=== PATIENT | male | born 1955 | race Caucasian/White ===

== ENCOUNTER 2024-04-02 13:59 | Inpatient (IN) ==
[2024-04-03] MEDS: ASPIRIN 81 MG CHEWTAB PO SCH (03:46)
[2024-04-03] MEDS: COLACE CAP 100 MG PO SCH (03:59)
[2024-04-03] MEDS: CYMBALTA PO SCH (03:59)
[2024-04-03] MEDS: MILK OF MAGNESIA PO SCH (04:00)
[2024-04-03] MEDS: NORVASC TAB 10 MG PO SCH (04:00)
[2024-04-03] MEDS: LIPITOR TAB 40 MG PO SCH (04:00)
[2024-04-03] MEDS: GLUCOPHAGE PO SCH (04:00)
[2024-04-03] MEDS: PROTONIX TAB 40 MG PO SCH (04:01)
[2024-04-03] MEDS: ZESTRIL TAB 40 MG PO SCH (04:01)
[2024-04-03] MEDS: ZYLOPRIM PO SCH (04:01)
[2024-04-03] MEDS: MIACALCIN NASAL SPRAY NAS SCH (08:22)
[2024-04-03] MEDS: LOVENOX INJ 40 MG SYR SC SCH (10:11)
--- NOTE | 2024-04-03 14:42 | RAD ---
EXAM:CHEST, 1 VIEWHISTORY:CHF;COMPARISON:No relevant prior studies were available for comparison at the time of interpretation.TECHNIQUE:CHEST, 1 VIEWFINDINGS:Chest:Lines and tubes: NoneMediastinum: Cardiac and mediastinal shadow is within normal limits for size and contour.Pulmonary vessels: No pulmonary vascular congestion.Lung stack: No suspicious airspace opacity.Pleura: No effusion. No pneumothorax.Bones and soft tissues: No acute osseous or soft tissue abnormality.IMPRESSION:1. No acute cardiopulmonary abnormalityTHIS IS AN ELECTRONICALLY VERIFIED FINAL REPORT04/03/2024 2:29 PM - Electronically signed by Leander Winters MD
--- NOTE | 2024-04-03 15:47 | PT/OTEVAL ---
PT/OT OBJECTIVES - HISTORY Prescription: OT Consult Diagnosis: Left hip fracture Precautions: WBAT, Posterior hip precautions PMH: HTN, DM Prior Level of Function: Independent Other: Per pt report, was present this date, pt lives with his and son in a 1 story home and 3 steps to enter. No HRs in back, and Both HRs (cant touch B at same time) in front. Pt is (I) with ADLs and IADLs. History of Present Illness: Pt is a 68 year old female who came to [facility] swingbed program due to a recent fall resulting in a L hip subcaptial femeoral neck fx, L closed fx phalanx 4th digit. Pt had a L cemented bipolar hemiarthroplasty. - COGNITION Mental Status: Alert, Oriented, Name, Date, Place, Purpose Communication Status: Verbal Ability to Follow Directions: 3 Step Affect: Calm - PAIN Left Hip Pain Scale: Moderate Comments: 07/12 Left Knee Pain Scale: Moderate Comments: 06/12 - BED MOBILITY Rolling: Minimal Scooting: Minimal - TRANSFERS Supine to Sit: Minimal Sit to Stand: Minimal Sit or Stand Pivot: Minimal Toileting: Minimal Safety (requires cues for:): Hip Precautions - ADL'S Feeding: Supervision Grooming: Supervision Upper Body ADL: Supervision Lower Body ADL: Maximum Toileting: Minimum Bathing: Moderate Hygeine: Supervision - BALANCE Dynamic Sitting: Good Standing: Fair Balance Comment: F with UE support Static Sitting: Good Standing: Fair - HAND DOMINANCE Extremity Function: Hand Dominance: Right - ROM Bilateral UE ROM: WFL - STRENGTH Bilateral UE Strength Number: 3 Other comment: 3+/5 - GAIT Pt. ambulates how many feet?: 100 Amount of assistance required: Minimal Amount of Assistance Required: Minimal Type of Assistive Device: Rolling Walker - TREATMENT Date: 04/03/24 Time: 09:00 Treatment Type: Evaluation Treatment Provided: Therapeutic Activities, Other - TOTAL TREATMENT TIME Total Time: 90 - POST ASSESSMENT Post Assessment Comment: Pt was seen for skilled OT to assess CLOF. Pt was able to provide PLOF and hx. Pt was agreeable to participate with skilled OT this date. Pt supine to sit with min A. Pt was able to state 3/3 hip precautions this date. Pt functionally AMB with RW and min A for balance. Pt toileted with min A. Pt requires max A for LB dressing at this time, she will need AE for safety with LB ADLs. Pt functionally AMB ~ 100 feet with RW and min A with frequent RBs for fatigue/discomfort. Pt agreeable to sit up in recliner. All needs met and call light within reach. Pt demonstrate deficits with ADLs and ADL functional mobilit y. Pt would benefit from skilled OT services to address ADL deficits to facilitate highest level of ADL function needed for safe d/c planning. - EXIT DISPOSITION Exit Position: CHAIR Call light in reach: Yes PT/OT ASSESSMENT - OT Problem List: Decreased Mobility ADL's, Decreased Safety Aware, Decreased Dressing, Decreased Bathing, Decreased Grooming, Decreased UE Strength - OT GOALS Staff Nurse [employer] Team Goals Days: 20 Mobility for ADL's: Pt to functionally transfer with mod (I). Safety Awareness: Pt to improve safety awareness to G Dressing: Pt to improve overall dressing to mod (I) Bathing: Pt to improve overall bathing to mod (I) Grooming: Pt to improve grooming to (I) Upper Ext. Strength/Use: Pt to improve MMT in BUE by 2 grades Other: Pt to improve FAT to G Short Term Goals Days: 10 Mobility for ADL's: Pt to functionally transfer with set up A and LRAD. Safety Awareness: Pt to improve safety awareness to F+ Dressing: Pt to improve overall dressing to set up A with AE Bathing: Pt to improve overall bathing to set up A with AE Upper Ext. Strength/Use: Pt to improve MMT in BUE by 1 grades Other: Pt to improve FAT to F+ - PATIENT GOALS Patient/Family Goals: "I want to go home" Goals Discussed with Patient/Family: Yes Rehabilitation Potential: Goo dto meet stated goals. Justification for Potential: To facilitate highest level of ADL function needed for safe d/c planning. Weakness and Barriers: Pain - FREQUENCY AND DURATION OT: 5x a week x 20 days Expected Continuation of Care at Discharge: Home, Outpatient Therapy
--- NOTE | 2024-04-03 17:02 | PT/OTEVAL ---
PT/OT OBJECTIVES - HISTORY Prescription: PT Consult Diagnosis: L THR s/p Fall; L 4th Phalanx Fracture Precautions: WBAT LLE, Posterior Total Hip Precautions, Fall Risk PMH: HTN, DM, Orthopedic Surgery (Ankle and Wrist), Kidney Stone Sx Prior Level of Function: Independent Other: Per patient report- she resides with her and son in a single story home with 3 steps to enter at all entrances. Front has BHRs but cannot reach both at the same time. PLOF: Independent within home and community without a device. No DME. Reports that she could drive if needed but does the majority of the driving. History of Present Illness: Mrs. Dunham is a 68 year old female who had a fall on 03/28/2024 resulting in L subcapital fracture for which she underwent a L bipolar cemented YAQUELIN (posterior approach) on 03/29/2024. Pt also sustained a L 4th phalanx fracture. Post op it was deemed that patient would benefit from swing bed rehab program and was transferred to [facility] on the evening of 04/02/2024. - COGNITION Mental Status: Alert, Oriented, Name, Date, Place, Purpose Communication Status: Verbal Ability to Follow Directions: 3 Step Memory Loss: None Affect: Calm - PAIN Left Hip Pain Scale: Moderate Comments: 07/12 Left Knee Pain Scale: Moderate Comments: 06/12 - BED MOBILITY Rolling: Minimal Rolling Comment: Cues to maintain posterior hip precautions - TRANSFERS Supine to Sit: Minimal Sit to Stand: Minimal Sit or Stand Pivot: Minimal Safety (requires cues for:): Weight Bearing Precaution, Hip Precautions - BALANCE Dynamic Sitting: Good Standing: Fair Balance Comment: Fair- Static Sitting: Good Standing: Fair - HAND DOMINANCE Extremity Function: Hand Dominance: Left - ROM Right LE ROM: WFL Left LE ROM: WFL Muscle Tone: WFL Comment: WFL to maintain L posterior hip precautions - STRENGTH Bilateral UE Strength Number: 3 Other comment: 3+/5 Right LE Strength Number: 4 Left Hip Strength Number: 3 Left Knee Strength Number: 3 Left Ankle Strength Number: 4 - GAIT Pt. ambulates how many feet?: 100 Amount of Assistance Required: Minimal Type of Assistive Device: Rolling Walker Comments: L knee immobilizer donned, decreased step length & decreased foot clearance - TREATMENT Date: 04/03/24 Time: 07:00 Treatment Type: Evaluation Treatment Provided: Gait, Therapeutic Activities - TOTAL TREATMENT TIME Total Time: 90 - POST ASSESSMENT Post Assessment Comment: Pt presents to facility s/p fall resulting in L subcapital fracture requiring posterior hip replacement surgery. Pt able to provide history and PLOF information and recall 3/3 posterior hip precautions. Pt required min assist for bed mobility tasks with cues for maintaining precautions and using pillow between knees if needed. Pt min assist for functional transfers from EOB, commode and recliner chair and cues for hand placement. Places LLE out in front of her to maintain precautions but also because knee immobilizer donned. Pt ambulated with FWW and min assist- cues for foot placement and sequencing with AD. Pt able to ambulate for 100ft before requiring therapeutic rest break. Performed 4 bouts total. Pt with excellent motivation for participation and would benefit from continued participation in PT services to address deficits and facilitate highest level of function and safe discharge planning. - EXIT DISPOSITION Exit Position: CHAIR Call light in reach: Yes PT/OT ASSESSMENT - PT Problem List: Decreased Bed Mobility, Decreased Transfers, Decreased Gait, Decreased Balance, Decreased LE Strength, Other Other, Comment: Manual Therapy, E-Stim as needed - PT GOALS Short Term Goals Days: 10 Mobility: Pt will perform bed mobility tasks with mod I Transfers: Pt will perform functional transfers with mod I Gait: Pt will ambulate 200ft with FWW and SBA Balance: Pt will increase static standing balance to good ROM/Strength: Pt will increase RLE strength to 5/5 Marketing Sales Representative Goals Days: 20 Gait: Pt will ambulate 400ft with LRAD and mod I Balance: Pt will increase dynamic standing balance to good ROM/Strength: Pt will increase LLE strength to 5/5 Others: Pt will ascend/descend 3 stairs with HR and mod I - OT GOALS Marketing Sales Representative Goals Days: 20 Mobility for ADL's: Pt to functionally transfer with mod (I). Safety Awareness: Pt to improve safety awareness to G Dressing: Pt to improve overall dressing to mod (I) Bathing: Pt to improve overall bathing to mod (I) Grooming: Pt to improve grooming to (I) Upper Ext. Strength/Use: Pt to improve MMT in BUE by 2 grades Other: Pt to improve FAT to G Short Term Goals Days: 10 Mobility for ADL's: Pt to functionally transfer with set up A and LRAD. Safety Awareness: Pt to improve safety awareness to F+ Dressing: Pt to improve overall dressing to set up A with AE Bathing: Pt to improve overall bathing to set up A with AE Upper Ext. Strength/Use: Pt to improve MMT in BUE by 1 grades Other: Pt to improve FAT to F+ - PATIENT GOALS Patient/Family Goals: "I want to get better and go home" Goals Discussed with Patient/Family: Yes Rehabilitation Potential: Good to meet stated goals Justification for Potential: Facilitate highest level of function and safe discharge planning Weakness and Barriers: None - PLAN Suggested Treatment Plan: Bed Mobility Training, Therapeutic Activity, Gait Training, Neuro Re-education, Therapeutic Ex with HEP, Patient Education - FREQUENCY AND DURATION PT: 5-6x per week x 20 days Expected Continuation of Care at Discharge: Outpatient Therapy Anticipated Equipment Needs: TBD pending progress and participation; will most likely require a walker.
--- NOTE | 2024-04-03 17:58 | DR.UPDATE ---
H&P UPDATE (1) Weakness: History and Physical Update: ADMIT FOR SWING BED THERAPY. ROUTINE LABS PT/OT PAIN CONTROL HISTORY AND PHYSICAL EXAM 04/02/2024 Review Yes Any changes to H&P?: No Patient was examined?: Yes
[2024-04-03] MEDS: SNACK - Diabetic Appropriate PO SCH (20:00)
[2024-04-03] MEDS ORDERED: GLUCOPHAGE ONE (20:03)
[2024-04-03] MEDS: PERCOCET TAB 5/325 MG PO PRN (23:25)
[2024-04-04 06:16] LABS: BASOPHILS % (AUTO) 0.4 % (0.2-1.0); EOSINOPHILS # (AUTO) 0.2 x10^3/uL (0.0-0.2); HEMATOCRIT 27.8 % (42.0-54.0); HEMOGLOBIN 9.7 g/dL (13.5-18.0); LYMPHOCYTES # (AUTO) 1.8 X10^3/uL (1.3-2.9); LYMPHOCYTES % (AUTO) 35.4 % (21.0-51.0); MEAN CORPUSCULAR HEMOGLOBIN 29.7 pg (27.0-34.0); MEAN CORPUSCULAR HGB CONC 34.8 g/dL (33.0-35.0); MEAN CORPUSCULAR VOLUME 85.2 fL (80.0-100.0); MEAN PLATELET VOLUME 9.7 fL (7.4-11.0); MONOCYTES # (AUTO) 0.6 x10^3/uL (0.3-0.8); MONOCYTES % (AUTO) 11.2 % (0.0-13.0); NEUTROPHILS # (AUTO) 2.5 x10^3/uL (2.2-4.8); PLATELET COUNT 182 X10^3/uL (150.0-450.0); RED BLOOD COUNT 3.26 X10^6/uL (4.7-6.0); RED CELL DISTRIBUTION WIDTH 14.6 % (11.6-16.5)
[2024-04-04 06:25] LABS: ALANINE AMINOTRANSFERASE 22 Units/L (12-78); ALBUMIN 2.2 g/dL (3.4-5.0); ALKALINE PHOSPHATASE 108 Units/L (46-116); ASPARTATE AMINO TRANSFERASE 23 Units/L (15-37); BLOOD UREA NITROGEN 19 mg/dL (7-18); CALCIUM 8.9 mg/dL (8.5-10.1); CARBON DIOXIDE 26.8 mmol/L (21-32); CHLORIDE 104 mmol/L (98-107); COR CA(FOR HYPOALB) 10.3 mg/dL (8.5-10.1); COR NA(FOR HYPERGLY) 139 mmol/L (136-145); CREATININE 0.93 mg/dL (0.70-1.30); GLUCOSE 111 mg/dL (65-99); POTASSIUM 3.5 mmol/L (3.5-5.1); SODIUM 139 mmol/L (136-145); TOTAL PROTEIN 6.1 g/dL (6.4-8.2); eGFR NON BLACK RACES > 60 (>60)
[2024-04-04] MEDS ORDERED: CONSULT PHARMACY - POTASSIUM & MAGNESIUM XX SCH (08:00)
[2024-04-04] MEDS: K-DUR TAB 20 MEQ PO SCH (08:24)
[2024-04-04] MEDS: MAG-OX TAB PO SCH (08:24)
[2024-04-04 12:42] VITALS: BMI 26.8
[2024-04-04] MEDS ORDERED: GLUCOPHAGE ONE (20:07)
[2024-04-05 07:10] LABS: BASOPHILS % (AUTO) 0.8 % (0.2-1.0); EOSINOPHILS # (AUTO) 0.2 x10^3/uL (0.0-0.2); EOSINOPHILS % (AUTO) 3.1 % (0.9-2.9); HEMATOCRIT 29.5 % (42.0-54.0); HEMOGLOBIN 9.9 g/dL (13.5-18.0); LYMPHOCYTES # (AUTO) 1.8 X10^3/uL (1.3-2.9); LYMPHOCYTES % (AUTO) 32.9 % (21.0-51.0); MEAN CORPUSCULAR HEMOGLOBIN 29.1 pg (27.0-34.0); MEAN CORPUSCULAR HGB CONC 33.6 g/dL (33.0-35.0); MEAN CORPUSCULAR VOLUME 86.6 fL (80.0-100.0); MEAN PLATELET VOLUME 10.4 fL (7.4-11.0); MONOCYTES # (AUTO) 0.5 x10^3/uL (0.3-0.8); MONOCYTES % (AUTO) 9.5 % (0.0-13.0); NEUTROPHILS % (AUTO) 53.7 % (42.0-75.0); PLATELET COUNT 210 X10^3/uL (150.0-450.0); RED BLOOD COUNT 3.41 X10^6/uL (4.7-6.0); RED CELL DISTRIBUTION WIDTH 14.6 % (11.6-16.5); WHITE BLOOD COUNT 5.5 X10^3/uL (3.6-10.0)
[2024-04-05 07:28] LABS: ALANINE AMINOTRANSFERASE 23 Units/L (12-78); ALBUMIN 2.4 g/dL (3.4-5.0); ALKALINE PHOSPHATASE 104 Units/L (46-116); ASPARTATE AMINO TRANSFERASE 21 Units/L (15-37); BLOOD UREA NITROGEN 21 mg/dL (7-18); CALCIUM 8.9 mg/dL (8.5-10.1); CHLORIDE 106 mmol/L (98-107); COR CA(FOR HYPOALB) 10.2 mg/dL (8.5-10.1); CREATININE 1.01 mg/dL (0.70-1.30); GLUCOSE 104 mg/dL (65-99); MAGNESIUM 1.9 mg/dL (2.0-2.9); POTASSIUM 4.2 mmol/L (3.5-5.1); SODIUM 142 mmol/L (136-145); TOTAL PROTEIN 6.2 g/dL (6.4-8.2); eGFR NON BLACK RACES > 60 (>60)
[2024-04-05] MEDS ORDERED: CONSULT PHARMACY - POTASSIUM & MAGNESIUM XX SCH (08:00)
[2024-04-05] MEDS: MAG-OX TAB PO SCH (10:29)
--- NOTE | 2024-04-05 11:23 | PCM.PROG ---
Progress Note Progress Note for Day of Date of Exam: 04/05/24 Subjective Subjective: Patient seen at bedside, no acute events overnight. She is currently admitted as swing bed for left hip fracture. She has been working with PT and doing well. Her pain has been well-controlled. She does report no BM in 9 days. She has tried colace and milk of mag. She reports chronic constipation due to Ozempic. Discussed with patient about adding other medications. Denies N/V or abdominal pain. Labs/imaging: -WBC 5.5 Hgb 9.9 K 4.2 BUN/Cr Plan: continue PT/OT as tolerated. Continue current medications. Replace electrolytes prn. Labs prn. Will add linzess prn. Encouraged mobility and hydration. Continue swing bed status. Past Medical Family Social History Allergies: Allergies topiramate [From Topamax] Allergy (Verified 04/02/24 17:21) tramadol [From Ultram] Allergy (Verified 04/02/24 17:21) Vital Signs and I&O's Vital Signs: Vital Signs Temperature 97.8 F Pulse Rate [Brachial] 65 Respiratory Rate 18 Blood Pressure [Right Arm] 105/58 O2 Sat by Pulse Oximetry 93 Intake and Output: Intake & Output 04/02/24 04/03/24 04/04/24 04/05/24 23:59 23:59 23:59 23:59 Intake Total 320 / 320 1020 / 1020 1630 / 1630 130 / 130 Balance 320 / 320 1020 / 1020 1630 / 1630 130 / 130 Physical Exam Oriented: Normal Respiratory: Normal Cardiovascular: Normal Auscultation: Bowel Sounds: Normal Palpation: Normal Tenderness: Normal Skin: Normal Musculoskeletal: Left, Hip and Motor Deficit Psychiatric: Normal Mood Description: Calm Affect: Normal Speech Pattern: Clear and Appropriate Laboratory and Diagnostics 04/05/24 05:34 04/05/24 05:34 Labs: Laboratory WBC 5.5 X10^3/uL (3.6-10.0) 04/05/24 05:34 RBC 3.41 X10^6/uL (4.7-6.0) L 04/05/24 05:34 Hgb 9.9 g/dL (13.5-18.0) L 04/05/24 05:34 Hct 29.5 % (42.0-54.0) L 04/05/24 05:34 MCV 86.6 fL (80.0-100.0) 04/05/24 05:34 MCH 29.1 pg (27.0-34.0) 04/05/24 05:34 MCHC 33.6 g/dL (33.0-35.0) 04/05/24 05:34 RDW 14.6 % (11.6-16.5) 04/05/24 05:34 Plt Count 210 X10^3/uL (150.0-450.0) 04/05/24 05:34 MPV 10.4 fL (7.4-11.0) 04/05/24 05:34 Neut % (Auto) 53.7 % (42.0-75.0) 04/05/24 05:34 Lymph % (Auto) 32.9 % (21.0-51.0) 04/05/24 05:34 Fannin % (Auto) 9.5 % (0.0-13.0) 04/05/24 05:34 Eos % (Auto) 3.1 % (0.9-2.9) H 04/05/24 05:34 Baso % (Auto) 0.8 % (0.2-1.0) 04/05/24 05:34 Neut # (Auto) 3.0 x10^3/uL (2.2-4.8) 04/05/24 05:34 Lymph # (Auto) 1.8 X10^3/uL (1.3-2.9) 04/05/24 05:34 Fannin # (Auto) 0.5 x10^3/uL (0.3-0.8) 04/05/24 05:34 Eos # (Auto) 0.2 x10^3/uL (0.0-0.2) 04/05/24 05:34 Baso # (Auto) 0.0 X10^3/uL (0.0-0.1) 04/05/24 05:34 Absolute Nucleated RBC 0.0 /100WBC 04/05/24 05:34 Sodium 142 mmol/L (136-145) 04/05/24 05:34 Corrected Sodium TNP 04/05/24 05:34 Potassium 4.2 mmol/L (3.5-5.1) 04/05/24 05:34 Chloride 106 mmol/L (98-107) 04/05/24 05:34 Carbon Dioxide 28.0 mmol/L (21-32) 04/05/24 05:34 BUN 21 mg/dL (7-18) H 04/05/24 05:34 Creatinine 1.01 mg/dL (0.70-1.30) 04/05/24 05:34 Est GFR (MDRD) Af Amer > 60 (>60) 04/05/24 05:34 Est GFR (MDRD) Non-Af > 60 (>60) 04/05/24 05:34 Glucose 104 mg/dL (65-99) H 04/05/24 05:34 POC Glucose (mg/dL) 133 mg/dL (65-99) H 04/05/24 10:28 Calcium 8.9 mg/dL (8.5-10.1) 04/05/24 05:34 Corrected Calcium 10.2 mg/dL (8.5-10.1) H 04/05/24 05:34 Magnesium 1.9 mg/dL (2.0-2.9) L 04/05/24 05:34 Total Bilirubin 0.50 mg/dL (0.2-1.0) 04/05/24 05:34 AST 21 Units/L (15-37) 04/05/24 05:34 ALT 23 Units/L (12-78) 04/05/24 05:34 Alkaline Phosphatase 104 Units/L (46-116) 04/05/24 05:34 Total Protein 6.2 g/dL (6.4-8.2) L 04/05/24 05:34 Albumin 2.4 g/dL (3.4-5.0) L 04/05/24 05:34 Globulin 3.8 g/dL (2.5-4.5) 04/05/24 05:34 Albumin/Globulin Ratio 0.6 Ratio (1.1-2.1) L 04/05/24 05:34 Plan (1) Weakness: Status: Acute (2) Hip fracture, left: Status: Acute Qualifiers: Encounter type: subsequent encounter Fracture type: closed (3) Constipation: Status: Chronic Qualifiers: Constipation type: unspecified constipation type Qualified Code(s): K59.00 - Constipation, unspecified
[2024-04-05] MEDS: LINZESS PO PRN (12:28)
[2024-04-05] MEDS ORDERED: GLUCOPHAGE ONE (20:34)
[2024-04-06 07:01] LABS: BASOPHILS % (AUTO) 0.5 % (0.2-1.0); EOSINOPHILS # (AUTO) 0.2 x10^3/uL (0.0-0.2); HEMATOCRIT 28.8 % (42.0-54.0); HEMOGLOBIN 9.6 g/dL (13.5-18.0); LYMPHOCYTES # (AUTO) 1.4 X10^3/uL (1.3-2.9); LYMPHOCYTES % (AUTO) 27.7 % (21.0-51.0); MEAN CORPUSCULAR HEMOGLOBIN 29.2 pg (27.0-34.0); MEAN CORPUSCULAR HGB CONC 33.3 g/dL (33.0-35.0); MEAN CORPUSCULAR VOLUME 87.7 fL (80.0-100.0); MEAN PLATELET VOLUME 9.8 fL (7.4-11.0); MONOCYTES # (AUTO) 0.5 x10^3/uL (0.3-0.8); MONOCYTES % (AUTO) 9.8 % (0.0-13.0); PLATELET COUNT 222 X10^3/uL (150.0-450.0); RED BLOOD COUNT 3.28 X10^6/uL (4.7-6.0); RED CELL DISTRIBUTION WIDTH 14.4 % (11.6-16.5); WHITE BLOOD COUNT 5.2 X10^3/uL (3.6-10.0)
[2024-04-06 07:26] LABS: ALANINE AMINOTRANSFERASE 21 Units/L (12-78); ALBUMIN 2.4 g/dL (3.4-5.0); ALKALINE PHOSPHATASE 101 Units/L (46-116); ASPARTATE AMINO TRANSFERASE 18 Units/L (15-37); BLOOD UREA NITROGEN 27 mg/dL (7-18); CALCIUM 9.3 mg/dL (8.5-10.1); CHLORIDE 107 mmol/L (98-107); COR CA(FOR HYPOALB) 10.6 mg/dL (8.5-10.1); CREATININE 1.09 mg/dL (0.70-1.30); GLUCOSE 107 mg/dL (65-99); MAGNESIUM 2.4 mg/dL (2.0-2.9); POTASSIUM 4.5 mmol/L (3.5-5.1); SODIUM 143 mmol/L (136-145); TOTAL PROTEIN 6.2 g/dL (6.4-8.2); eGFR NON BLACK RACES > 60 (>60)
[2024-04-07] MEDS: GLUCOPHAGE ONE (06:54)
[2024-04-08] MEDS: GLUCOPHAGE ONE (06:47)
[2024-04-08] MEDS: NovoLIN R (or HumuLIN R) SUBCUT PRN (16:36)
[2024-04-08] MEDS ORDERED: GLUCOPHAGE ONE (21:16)
[2024-04-09 06:16] LABS: BASOPHILS % (AUTO) 0.6 % (0.2-1.0); EOSINOPHILS # (AUTO) 0.1 x10^3/uL (0.0-0.2); EOSINOPHILS % (AUTO) 2.8 % (0.9-2.9); HEMATOCRIT 27.7 % (42.0-54.0); HEMOGLOBIN 9.4 g/dL (13.5-18.0); LYMPHOCYTES # (AUTO) 1.6 X10^3/uL (1.3-2.9); LYMPHOCYTES % (AUTO) 32.5 % (21.0-51.0); MEAN CORPUSCULAR HEMOGLOBIN 29.4 pg (27.0-34.0); MEAN CORPUSCULAR HGB CONC 33.9 g/dL (33.0-35.0); MEAN CORPUSCULAR VOLUME 86.6 fL (80.0-100.0); MEAN PLATELET VOLUME 9.9 fL (7.4-11.0); MONOCYTES # (AUTO) 0.5 x10^3/uL (0.3-0.8); MONOCYTES % (AUTO) 9.5 % (0.0-13.0); NEUTROPHILS # (AUTO) 2.8 x10^3/uL (2.2-4.8); NEUTROPHILS % (AUTO) 54.6 % (42.0-75.0); PLATELET COUNT 210 X10^3/uL (150.0-450.0); RED CELL DISTRIBUTION WIDTH 14.6 % (11.6-16.5); WHITE BLOOD COUNT 5.1 X10^3/uL (3.6-10.0)
[2024-04-09 06:29] LABS: ALANINE AMINOTRANSFERASE 30 Units/L (12-78); ALBUMIN 2.5 g/dL (3.4-5.0); ALKALINE PHOSPHATASE 117 Units/L (46-116); ASPARTATE AMINO TRANSFERASE 26 Units/L (15-37); BLOOD UREA NITROGEN 28 mg/dL (7-18); CALCIUM 9.1 mg/dL (8.5-10.1); CARBON DIOXIDE 25.8 mmol/L (21-32); CHLORIDE 108 mmol/L (98-107); COR CA(FOR HYPOALB) 10.3 mg/dL (8.5-10.1); COR NA(FOR HYPERGLY) 142 mmol/L (136-145); CREATININE 1.13 mg/dL (0.70-1.30); GLUCOSE 137 mg/dL (65-99); POTASSIUM 4.2 mmol/L (3.5-5.1); SODIUM 141 mmol/L (136-145); TOTAL PROTEIN 5.9 g/dL (6.4-8.2); eGFR NON BLACK RACES > 60 (>60)
[2024-04-09 08:48] VITALS: BP 105/51; PULSE 68; RESP 17; TEMP 98.1; O2SAT 97
== END 2024-04-09 10:05 | disposition home or self-care (01) | DRG 536 ==
LOC: MED/SURG 20:33
PROVIDERS: ADMIT Internal Medicine; ATTEND Internal Medicine
DX: R53.1 Weakness; E83.42 Hypomagnesemia; E11.65 Type 2 diabetes mellitus with hyperglycemia; S72.002A Fracture of unspecified part of neck of left femur, initial encounter for closed fracture; X58.XXXA Exposure to other specified factors, initial encounter; K59.09 Other constipation; S62.605A Fracture of unspecified phalanx of left ring finger, initial encounter for closed fracture; Z51.89 Encounter for other specified aftercare; I10 Essential (primary) hypertension; Z47.89 Encounter for other orthopedic aftercare